=== PATIENT | male | born 1925 | race Hispanic/Latino ===

== ENCOUNTER 2017-01-26 05:21 | Day surgery (SDC) | payer OTHER ==
[~2017-01-26] VITALS: Ht 170.2 cm; Wt 82.6 kg
[~2017-01-26 05:21] MED LIST: ARTIFICIAL TEAR15 M6 BOTH EYES; BUSPAR5 MG PO; FRESHKOTE15 ML BOTH EYES; LIPITOR40 MG PO; LOPRESSOR25 MG PO; MILK OF MAGNESI10 ML PO; MYSOLINE50 MG PO; RESTASIS 01 DROP/0.4 BOTH EYES; ROBAXIN750 MG PO; SEROQUEL12.5 MG PO; TRAZODONE HCL50 MG PO; TYLENOL REGULA325 MG PO; [UNRECOGNIZED DRUG - OTHER] TP
[2017-01-26 05:58] VITALS: BP 184/80
[2017-01-26 06:07] LABS: POINT-OF-CARE METER ID UU14174212
[2017-01-26] MEDS ORDERED: METFORMIN HCL500 MG PO (06:16)
[2017-01-26 11:50] LABS: POINT-OF-CARE METER ID UU13113675
[2017-01-26 13:15] VITALS: BP 197/89
[2017-01-26 13:51] VITALS: BP 189/89
== END 2017-01-26 14:06 | disposition home or self-care (01) ==
LOC: SDC 05:21
PROVIDERS: Internal Medicine
DX: H35.372 Puckering of macula, left eye (principal); E11.40 Type 2 diabetes mellitus with diabetic neuropathy, unspecified; I10 Essential (primary) hypertension; G25.0 Essential tremor; C61 Malignant neoplasm of prostate; D64.9 Anemia, unspecified; E78.5 Hyperlipidemia, unspecified; F43.29 Adjustment disorder with other symptoms; Z88.0 Allergy status to penicillin
CPT/HCPCS: 82948; J0360; J0690; J1100; J3010; J3300; J3370